=== PATIENT | female | born 1955 | race Caucasian/White ===

== ENCOUNTER 2019-06-25 18:28 | Emergency (ER) | payer OTHER ==
[~2019-06-25] VITALS: Ht 152.4 cm; Wt 64.0 kg
[2019-06-25 19:59] VITALS: BP_SYST 161
--- NOTE | 2019-06-25 20:35 | NUR ---
Pt placed to ER bed 03, to gown, report given to ELIZA Esparza.
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
--- NOTE | 2019-06-25 20:41 | NUR ---
PT W/ NO LOC S/P FALL INCIDENCE.
--- NOTE | 2019-06-25 20:55 | NUR ---
ISHMAEL SENA AT BEDSIDE.
[2019-06-25] MEDS ORDERED: KETOROLAC TROMETHAMINE 60 MG/2 ML VIAL IM ONE (21:15)
[2019-06-25 22:47] VITALS: BP_SYST 124
--- NOTE | 2019-06-25 22:50 | NUR ---
Patient given written and verbal discharge instructions and verbalizes understanding. ER MD discussed with patient the results and treatment provided. Patient in stable condition. ID arm band removed. Rx of given. Patient educated on pain management and to follow up with PMD. Pain Scale 0/10.Opportunity for questions provided and answered. Medication side effect fact sheet provided.
== END 2019-06-25 22:50 | disposition home or self-care (01) ==
LOC: SED 18:28
DX: S70.01XA Contusion of right hip, initial encounter (principal); E11.9 Type 2 diabetes mellitus without complications; W18.39XA Other fall on same level, initial encounter; Y93.89 Activity, other specified; Y92.89 Other specified places as the place of occurrence of the external cause; Y99.8 Other external cause status
CPT/HCPCS: 96372; 99283; J1885